=== PATIENT | female | born 2000 | race Caucasian/White ===

== ENCOUNTER 2024-04-14 12:59 | Emergency (ER) | payer MEDICAID ==
[~2024-04-14] VITALS: Ht 160 cm; Wt 68.0 kg
[2024-04-14 13:15] VITALS: O2SAT 99
[2024-04-14 16:18] LABS: CHLORIDE 107 mEq/L (98-107); SODIUM 140 mEq/L (136-145)
[2024-04-14 16:19] LABS: CALCIUM 9.7 mg/dL (8.7-10.4); CARBON DIOXIDE 25 mEq/L (21-32)
[2024-04-14 16:24] LABS: CREATININE 0.7 mg/dL (0.6-1.0); GLUCOSE 90 mg/dL (70-105); UREA NITROGEN BLOOD 8 mg/dL (9-23)
[2024-04-14 16:39] LABS: HCG SCREEN NEGATIVE
[2024-04-14 16:45] LABS: BASOPHILS % 1.1 % (0.0-2.0); EOSINOPHILS % 1.4 % (0.0-5.0); HEMATOCRIT. 37.9 % (36.0-48.0); HEMOGLOBIN. 12.8 g/dL (12.0-16.0); MEAN CORPUSCULAR HEMOGLOBIN 28.9 pg (28.0-32.0); MEAN CORPUSCULAR HGB CONC 33.8 g/dL (31.0-37.0); MEAN CORPUSCULAR VOLUME 85.7 fL (81.0-99.0); MEAN PLATELET VOLUME 8.1 fl (7.4-10.4); NEUTROPHILS % 63.5 % (40.0-76.0); PLATELET 310 x1000/uL (130-400); RED BLOOD CELL COUNT 4.43 mill/uL (4.2-5.4); RED CELL DISTRIBUTION WIDTH 14.8 % (11.6-14.6); WHITE BLOOD COUNT 5.8 x1000/uL (4.5-11.0)
[2024-04-14] MEDS ORDERED: AMOX-494 MT (20:46)
[2024-04-14 21:09] VITALS: BP 140/86; PULSE 76; RESP 18; TEMP 36.66960; O2SAT 99
[2024-04-14] MEDS ORDERED: IOHEXOL-300 100 ML BOTTLE ONE (23:12)
== END 2024-04-14 21:11 | disposition home or self-care (01) ==
LOC: ER 12:59
DX: R22.0 Localized swelling, mass and lump, head (principal)
CPT/HCPCS: 99285; 70487; 80048; 84703; 85025; 36415; Q9967